=== PATIENT | male | born 1960 | race Caucasian/White ===

== ENCOUNTER 2019-09-15 00:32 | Emergency (ER) | payer OTHER ==
[~2019-09-15] VITALS: Ht 170.2 cm; Wt 72.0 kg
[2019-09-15 00:36] VITALS: BP 117/82
[2019-09-15] MEDS ORDERED: DIPH,PERTUSS(ACELL),TET VAC/PF 0.5 ML IM-VACC ONE ×2 (00:57→01:00)
[2019-09-15] MEDS ORDERED: LIDOCAINE 1%-EPI 1:100K, 20ML ONE (00:57)
[2019-09-15] MEDS ORDERED: NEOSPORIN OINT. PKT 1 PACKET ONE (00:58)
== END 2019-09-15 03:25 | disposition home or self-care (01) ==
LOC: ED 01:01
DX: S01.81XA Laceration without foreign body of other part of head, initial encounter (principal); W01.198A Fall on same level from slipping, tripping and stumbling with subsequent striking against other object, initial encounter; Y93.89 Activity, other specified; Y92.009 Unspecified place in unspecified non-institutional (private) residence as the place of occurrence of the external cause; Y99.8 Other external cause status
CPT/HCPCS: 12031; 12051; 70450; 90471; 90715; 99284